=== PATIENT | male | born 1965 | race Caucasian/White ===

== ENCOUNTER 2021-04-06 12:47 | Emergency (ER) | payer OTHER, SELFPAY ==
[2021-04-06 15:37] VITALS: BP 148/98; PULSE 107; RESP 18; TEMP 36.6; O2SAT 98; BMI 32.5
[2021-04-06 16:07] LABS: COVID-19 Test Negative (Negative)
--- NOTE | 2021-04-06 18:56 | ED.URI ---
HPI - URI/Sore Throat General Chief Complaint: Upper Respiratory Symptoms Stated Complaint: flu symptons chest tightness Time Seen by Provider: 04/06/21 18:44 Source: patient Mode of arrival: ambulatory Limitations: no limitations History of Present Illness HPI Narrative: 56-year-old male who presents emergency department for evaluation of cough, chest tightness, headache, fever, body aches and shortness of breath. The patient states that on 04/02/2021 (5 days prior to evaluation) he was at a constitution party and was exposed to someone who tested positive for COVID-19. He also states that he went outside in a T-shirt and got wet, when he came back inside he felt very cold and chilled. He states that since then he has had a cough which is productive of thick yellow mucus with no blood in the mucus, he has had shortness of breath which she describes as mild, he denied dyspnea on exertion. He has tightness in his chest which is worse with breathing worse with coughing. States that he has had body aches. He denies diarrhea or loss of sense of taste or smell. He has not had a documented fever at home. The patient does have a history of sleep apnea and uses a CPAP machine. Related Data Previous Rx's Medication Instructions Recorded benzonatate 100 mg capsule 200 mg PO TID PRN #20 cap 04/06/21 doxycycline hyclate 100 mg tablet 100 mg PO Q12H 7 Days #14 tab 04/06/21 Allergies Allergy/AdvReac Type Severity Reaction Status Date / Time No Known Allergies Allergy Verified 04/06/21 15:37 Review of Systems Review of Systems: Yes all other systems are reviewed and are negative [facility] Past Medical History [facility] Narrative: Past medical history: Diabetes mellitus, hypertension, sleep apnea, osteoporosis. Past surgical history: Cholecystectomy, spinal cyst removed, left total knee replacement. Social history: He denies tobacco use. He occasionally drinks alcohol. He denies drug use. Medical History Diabetes HTN (hypertension) Social History Social History Advance Directives: No Advance Directives Information Provided: No Physical Exam Vital Signs: Vital Signs: Last Vital Signs Temp 97.8 F 04/06/21 15:37 Pulse 107 H 04/06/21 15:37 Resp 18 04/06/21 15:37 BP 148/98 H 04/06/21 15:37 Pulse Ox 98 04/06/21 15:37 BMI result Body Mass Index 32.5 Const: General: cooperative and healthy appearing Orientation/consciousness: oriented to person and oriented to place Limitations: no limitations HENMT: Head: Yes normal to inspection, Yes normocephalic and Yes atraumatic Ears: external ears normal General nose exam: Normal external nose present Face and sinus: Yes normal facial exam Mouth: Normal oral and palatal mucosa present Throat: Yes posterior oropharynx normal Eyes: Periorbital: periorbital findings normal Eyelids: Yes eyelids normal Conjunctivae: conjunctivae normal Sclerae: sclerae normal Corneas: corneas normal Pupils: Equal, round and reactive pupils present Direct Ophthalmoscopy: normal light reflex Neck: Neck: Yes full ROM, Yes no lymphadenopathy, Yes no meningeal signs, Yes trachea midline and Yes supple Chest: Chest palpation & inspection: normal inspection of the chest and normal palpation of entire chest wall Resp: Effort & Inspection: normal respiratory effort and able to speak in complete sentences Auscultation: clear to auscultation bilaterally Cardio: Rate: regular rate Rhythm: regular rhythm Heart sounds: S1 normal heart sound present, S2 normal heart sound present and no murmurs GI: Inspection: Yes normal to inspection Palpation (GI): Soft to palpation, nontender, no guarding, not rigid and No hepatosplenomegaly present : General: Yes no CVA tenderness Back/Spine/Pelvis: Back: no CVA tenderness Cervical Spine: normal cervical lordosis Thoracic/Lumbar Spine: thoracic and lumbar spine normal to inspection Skin: Lesions: no lesions Rashes: no rashes Wounds: no wounds Neuro: General: oriented to person, oriented to place and no meningeal signs Cranial nerves: Yes Equal, round and reactive pupils present Cognition (Neuro): normal cognition Motor exam (neuro): 5/5 motor strength present throughout Extrem: General: Yes normal to inspection and Yes full ROM Psych: Appearance: well kempt Mental Status: mental status grossly normal Speech and movement: Normal speech and movement present Affect: normal affect Attitude: cooperative Thought process: Normal thought process present Thought content: Normal thought content present Course Course Course Narrative: 56-year-old male who presents emergency department for evaluation of 5 days of upper respiratory infection like symptoms. He has been vaccinated with the Pfizer COVID-19 vaccine x2. He did have a COVID-19 exposure 5 days prior while he was at a [employer] constitution party. The patient's vital signs revealed a tachycardia with a pulse of 107 elevated blood pressure of 148/98. Respiratory rate was normal at 18 in the patient's O2 saturation was 90% on room air. Lung exam was clear. Patient's COVID-19 test was negative. I did discuss false negative test with the patient. He has been ill for 5 days and I suspect that this test should be positive at this time but I did tell him that sometimes people do not turn positive for is 14 days. Given his sleep apnea and CPAP use, I will treat the patient for possible bacterial bronchitis with doxycycline 100 mg twice a day for 7 days and Tessalon Perles 200 mg 3 times a day as needed for cough. Was discharged home with printed and verbal instructions. MDM - URI/Sore Throat Lab Data Labs: Lab Results 04/06/21 Range/Units 15:42 COVID-19 ([facility]) Negative (Negative) COVID-19 Clin Com See Note Discharge Plan Discharge Clinical Impression: Bronchitis Patient Disposition: Home, Self-Care Instructions: Acute Bronchitis (ED) Additional Instructions: Your COVID-19 test today was negative. Most people when they have symptoms for 4-5 days will test positive if they have a COVID 19 infection Therefore it is reassuring that your COVID test was negative today however some people do not test positive until day 14 of their illness. Your O2 saturation was 98% on room air which is good. We only admit people to the hospital if there O2 saturation drops below 90%. I am treating you for a bacterial bronchitis with doxycycline 100 mg twice a day for 7 days. I am treating your cough with Tessalon Perles 200 mg, take 1 pill 3 times a day as needed for cough. Take ibuprofen 200 mg pills, 3 pills every 6 hours as needed for pain or fever Take Tylenol (acetaminophen) 500 mg pills, 2 pills every 4 to 6 hours as needed for pain or fever. If you develops signs of pneumonia which include increased cough, chest pain with breathing or coughing, shortness of breath at rest and shortness of breath with exertion (usually less than 10 ft) then please return to the emergency department so that can re-evaluate you in retested for COVID 19. Follow-up with your doctor in 2 days. Please return to the emergency department if your symptoms get worse or if you develop any symptoms that are concerning to you. Prescriptions: New doxycycline hyclate 100 mg tablet 100 mg PO Q12H 7 Days Qty: 14 RF: 0 benzonatate 100 mg capsule 200 mg PO TID PRN (Reason: cough) Qty: 20 RF: 0
== END 2021-04-06 19:15 | disposition home or self-care (01) ==
PROVIDERS: Emergency Provider Emergency Medicine Emergency Medical Services; PCP Internal Medicine
DX: J40 Bronchitis, not specified as acute or chronic (principal); Z20.822 Contact with and (suspected) exposure to COVID-19; J02.9 Acute pharyngitis, unspecified; E11.9 Type 2 diabetes mellitus without complications; I10 Essential (primary) hypertension
CPT/HCPCS: 36415; 87635; 99283

== ENCOUNTER 2021-04-09 10:11 | Emergency (ER) | payer OTHER, SELFPAY ==
--- NOTE | ~2021-04-09 | XR_ITS ---
EXAMINATION: XR CHEST CLINICAL INFORMATION: Covid positive. Cough. COMPARISON: None TECHNIQUE: Frontal view of the chest was obtained. FINDINGS: No significant abnormality is noted involving the heart, lungs, mediastinum, bony thorax or soft tissues. XR/XR chest 1V IMPRESSION: Unremarkable examination.
[2021-04-09 11:05] VITALS: BP 120/87; PULSE 112; RESP 18; TEMP 37.1; O2SAT 98; BMI 32.5
[2021-04-09 11:35] LABS: COVID-19 Test Positive (Negative); IDNOW Serial# 9DD0AD1C
--- NOTE | 2021-04-09 12:52 | ECG_ITS ---
Test Reason : chest tightness Blood Pressure : / mmHG Vent. Rate : 106 BPM Atrial Rate : 106 BPM P-R Int : 124 ms QRS Dur : 086 ms QT Int : 336 ms P-R-T Axes : 054 021 018 degrees QTc Int : 446 ms Sinus tachycardia Otherwise normal ECG No previous ECGs available Referred By: Jenn Salinas Electronically Signed By:Luis Zhang
--- NOTE | 2021-04-09 13:10 | ED.URI ---
HPI - URI/Sore Throat General Chief Complaint: Upper Respiratory Symptoms Stated Complaint: cough tested - covid Time Seen by Provider: 04/09/21 12:14 Source: patient Mode of arrival: ambulatory Limitations: no limitations History of Present Illness HPI Narrative: 56-year-old male came in for evaluation of upper respiratory symptoms and coughing. Symptoms started 2 days ago as yellow sputum productive coughing, chest tightness, otherwise no shortness of breath, no fever, no chills, no body ache, no sick contacts, no recent travel, patient received 2 COVID vaccination. Related Data Previous Rx's Medication Instructions Recorded benzonatate 100 mg capsule 200 mg PO TID PRN #20 cap 04/06/21 doxycycline hyclate 100 mg tablet 100 mg PO Q12H 7 Days #14 tab 04/06/21 codeine 10 mg-guaifenesin 100 mg/5 5 ml PO Q6H PRN #118 ml 04/09/21 mL oral liquid Allergies Allergy/AdvReac Type Severity Reaction Status Date / Time No Known Allergies Allergy Verified 04/09/21 11:05 Review of Systems Review of Systems: All other systems are reviewed and are negative Constitutional: Reports as per HPI and Reports no additional constitutional complaints Eyes: Reports as per HPI and Reports no additional eye complaints Reports system reviewed and no additional complaints, except as documented Cardiovascular: Reports as per HPI and Reports no additional cardiovascular complaints Respiratory: Reports as per HPI and Reports no additional respiratory complaints Gastrointestinal: Reports as per HPI and Reports no additional gastrointestinal complaints Genitourinary: Reports no additional female genitourinary complaints Musculoskeletal: Reports no additional musculoskeletal complaints Skin/Breast: Reports system reviewed and no additional complaints, except as docu Psychiatric: Reports no additional psychiatric complaints Endocrine: Reports no additional endocrine complaints Hematologic/Lymphatic: Reports no additional hematologic/lymphatic complaints Allergic/Immunologic: Reports no additional allergic/immunologic complaints Reports system reviewed and no additional complaints, except as documented and Reports Abnormal speech present [facility] Past Medical History Medical History Diabetes HTN (hypertension) Social History Social History Advance Directives: Yes Advance Directives Information Provided: Yes Advance Directives on File: No Physical Exam Vital Signs: Vital Signs: Last Vital Signs Temp 98.8 F 04/09/21 11:05 Pulse 112 H 04/09/21 11:05 Resp 18 04/09/21 11:05 BP 120/87 04/09/21 11:05 Pulse Ox 98 04/09/21 11:05 BMI result Body Mass Index 32.5 Vital signs have been reviewed as appeared to be correct. Blood pressure normal. Heart rate elevated. Respiration rate normal. Temperature normal. Oxygen saturation normal. Appearance: Alert. Oriented X3. No acute distress. Head: Normal external exam. Normocephalic. Atraumatic. No Ascencio signs noted. No raccoon eyes noted Eyes: PERRLA. EOMI. Conjunctiva and sclera normal. Eyelids normal. ENT: TM's Normal. Pharynx normal. Uvula midline. Moist mucous membranes. No trismus noted. No drooling noted. No muffled voice noted. Neck: Normal inspection. Neck supple. FROM. No adenopathy. Thyroid Normal. No meningeal signs. No neck mass noted. CVS: Normal heart rate and rhythm. Heart sound normal. No murmurs noted. Pulses normal throughout. Respiratory: No respiratory distress. Painless inspiration. Breath sounds normal. No wheezes/rales/rhonchi noted. Chest nontender. No accessory muscle usage noted or decreased air movement noted. Abdomen: Soft and nontender. Bowel sounds normal in all 4 quadrants. No distention noted. No organomegaly noted. No visible injury noted. Back: No CVA tenderness. Full range of motion noted. Skin: Skin warm and dry. Normal skin color. Normal skin turgor. No rashes/lesions/lacerations noted. Extremities: No lower extremity edema. Extremities exhibit normal range of motion. Extremities nontender. Neuro: Oriented X 3. Cranial nerve exam: II-XII are grossly intact No motor deficit. No sensory deficit. Reflexes normal. Course Reevaluation(s) Reevaluation #1: Assessment and plan. 56-year-old male COVID positive, no respiratory distress, no hypoxia, unremarkable chest x-ray, unremarkable EKG. Slight tachycardia from coughing. MDM - URI/Sore Throat Lab Data Attestation: I reviewed the patient's lab results. Labs: Lab Results 04/09/21 Range/Units 11:09 COVID-19 ([facility]) Positive A (Negative) COVID-19 Clin Com See Note Imaging Data Chest x-ray: Attestation: I personally reviewed and interpreted this imaging study as follows: Radiologist's impression: No acute pathology. Discharge Plan Discharge Clinical Impression: COVID-19 virus infection Patient Disposition: Home, Self-Care Instructions: COVID-19 (Coronavirus Disease 2019) (ED) Additional Instructions: Frequent handwashing, where face mask at all the time, keep social distancing at least 6 ft, self quarantine for 2 weeks. Prescriptions: New codeine-guaifenesin 10-100 mg/5 mL liquid 5 ml PO Q6H PRN (Reason: cough) Qty: 118 RF: 0 No Action doxycycline hyclate 100 mg tablet 100 mg PO Q12H 7 Days Qty: 14 RF: 0 benzonatate 100 mg capsule 200 mg PO TID PRN (Reason: cough) Qty: 20 RF: 0 Referrals: Mckay York MD [Primary Care Provider] - 2 days Interventions: ED Discharge Assessment Last Done: 04/09/21 13:37 Discharge Date/Time: 04/09/21 13:37
== END 2021-04-09 13:37 | disposition home or self-care (01) ==
PROVIDERS: Emergency Provider Emergency Medicine; PCP Internal Medicine
DX: U07.1 COVID-19 (principal); R05.9 Cough, unspecified; Z79.899 Other long term (current) drug therapy
CPT/HCPCS: 36415; 71045; 87635; 93005; 99283

== ENCOUNTER 2021-11-15 23:32 | Emergency (ER) | payer OTHER, SELFPAY ==
--- NOTE | 2021-11-15 | ECG_ITS ---
Test Reason : CHEST PAIN Blood Pressure : / mmHG Vent. Rate : 094 BPM Atrial Rate : 094 BPM P-R Int : 134 ms QRS Dur : 088 ms QT Int : 360 ms P-R-T Axes : 036 003 033 degrees QTc Int : 450 ms Normal sinus rhythm Normal ECG When compared with ECG of 09-APR-2021 12:54, No significant change was found Referred By: Generic ED Physician Electronically Signed By:AZRA BROWN
--- NOTE | ~2021-11-15 | CT_ITS ---
EXAMINATION: CT ABDOMEN AND PELVIS WITHOUT CONTRAST CLINICAL INFORMATION: Right lower quadrant pain COMPARISON: None TECHNIQUE: Multidetector volumetric imaging was performed from the superior aspect of the liver through the pubic symphysis. Sagittal and coronal reformatted images were obtained on the technologist's workstation. This CT examination was performed using dose optimization techniques as appropriate, variously including the following: *Automated exposure control *Adjustment of mA and/or kV according to patient size (this includes techniques or standardized protocols for targeted exams where dose is matched to indication/reason for exam; i.e. extremities or head) *Use of iterative reconstruction technique DLP: 680 mGy-cm FINDINGS: LUNG BASES: The visualized lung bases are unremarkable. LIVER, GALLBLADDER, AND BILIARY TREE: The liver is normal in size, shape, and attenuation. No focal hepatic lesion or biliary ductal dilatation is present. Cholecystectomy. PANCREAS: Unremarkable. SPLEEN: Unremarkable. ADRENAL GLANDS: Unremarkable. KIDNEYS AND URETERS: The kidneys are normal in size, shape, and attenuation. No hydronephrosis or hydroureter. 0.2 cm right midpole renal calculus is 12 cm from the posterior axillary line. There are 2 additional adjacent 0.2 cm right upper pole calculi. Exophytic left lower pole 1.1 cm simple cyst. No follow-up imaging recommended. BLADDER: Unremarkable. GASTROINTESTINAL TRACT: Distended stomach without wall thickening. Normal caliber small bowel. No obstruction. Normal appendix. No colonic wall thickening or inflammatory change. No free air or free fluid. ABDOMINAL WALL: Fat-containing right inguinal hernia. LYMPH NODES: Normal. VASCULAR: Normal caliber aorta with moderate atherosclerotic calcification. IVC filter present. PELVIC VISCERA: The prostate and seminal vesicles are unremarkable. OSSEOUS STRUCTURES: No acute or suspicious osseous abnormality. Mild height loss at the T11 vertebral body is likely chronic. Osseous fusion of the right sacroiliac joint. CT/CT abdomen pelvis wo con IMPRESSION: No acute finding in the abdomen or pelvis. Normal appendix. Nonobstructing right renal calculi. No hydronephrosis. Fleischner guidelines were followed.
--- NOTE | ~2021-11-15 | XR_ITS ---
EXAMINATION: XR CHEST CLINICAL INFORMATION: Chest pain COMPARISON: 04/09/2021 TECHNIQUE: Frontal view of the chest was obtained. FINDINGS: The lungs are well expanded. There is no focal consolidation, edema, or effusion. No pneumothorax. The cardiomediastinal silhouette is within normal limits. No acute osseous abnormality. XR/XR chest 1V IMPRESSION: No acute pulmonary finding.
[2021-11-15 23:36] VITALS: BP 151/96; PULSE 96; RESP 16; TEMP 36.6; O2SAT 99; BMI 33.2
[2021-11-15 23:50] LABS: MANUAL DIFF FLAG NO
[2021-11-15 23:51] LABS: Basophils Percent Auto 0.5 % (0-2); Eosinophils Absolute Auto 0.2 X10*3/uL (0.0-0.4); Eosinophils Percent Auto 3.9 % (0-4); Hemoglobin 13.4 g/dl (14.0-18.0); Imm Gran Abs Auto 0.01 X10*3/uL (0.00-0.03); Imm Gran Pct Auto 0.2 % (0.0-0.4); Lymphocytes Absolute Auto 2.8 X10*3/uL (1.2-4.9); Lymphocytes Percent Auto 44.6 % (20-40); Mean Corpuscular HGB Conc 33.5 g/dl (31.0-36.0); Mean Corpuscular Volume 80.6 fL (80.0-98.0); Mean Platelet Volume 9.9 fL (9.4-12.4); Monocytes Absolute Auto 0.4 X10*3/uL (0.1-1.2); Monocytes Percent Auto 6.9 % (2-11); Neutrophils Absolute Auto 2.7 x10*3/uL (2.0-8.3); Neutrophils Percent Auto 43.9 % (45-73); Platelet Count 182 X10*3/uL (160-400); Red Blood Count 4.96 X10*6/uL (4.60-5.80); Red Cell Distribution Width 12.5 % (11.0-16.0); White Blood Count 6.2 X10*3/uL (4.8-10.8)
[2021-11-16 00:11] LABS: Alanine Aminotransferase 13 U/L (0-40); Albumin Level 4.1 g/dL (3.5-5.0); Alkaline Phosphatase 63 U/L (39-117); Anion Gap 15 (12-20); Aspartate Amino Transferase 13 U/L (5-37); Bilirubin Direct 0.3 mg/dL (0.0-0.5); Bilirubin Total 0.6 mg/dL (0.0-1.0); Blood Urea Nitrogen 9 mg/dL (9-16); Carbon Dioxide 24 mmol/L (22-29); Chloride 105 mmol/L (96-108); Creatinine Clr Calc Pharmacy 90.2; Estimated Glomerular Filt Rate > 60; Glucose Random 206 mg/dL (60-115); Lipase 30 U/L (8-78); Potassium 3.6 mmol/L (3.3-5.1); Sodium 140 mmol/L (135-145); Total Protein 7.6 g/dL (6.5-8.0)
[2021-11-16 00:15] LABS: Troponin-I High Sensitivity 3.6 ng/L (<3.5-35.0)
--- NOTE | 2021-11-16 00:40 | ED.CHESTPAIN ---
HPI - Chest Pain General Chief Complaint: Chest Pain Stated Complaint: chest pain Time Seen by Provider: 11/16/21 00:40 Source: patient Mode of arrival: ambulatory Limitations: no limitations History of Present Illness HPI narrative: 56 yo male with hx of DM, HTN, HLD here with vague brief sharp chest pain all day in left upper chest - symptoms at rest not made worse with anything. states this has happened before has had normal stress tests in the past. He also c/o RLQ pain x 2 weeks with some constipation. He also notes he had a home COVID test that was positive 3 days ago. MD complaint: chest pain (abdominal pain) Onset (ago): day(s) (chest pain since 8/9 AM, and RLQ pain 2 weeks) Timing of current episode: episodic Onset: during rest Pain location: left chest Pain radiation: none Severity: mild Quality: sharp Relieving factors: nothing Exacerbating factors: nothing Context: recent illness (prior episodes of chest pain but notes + COVID test at home 3 days ago) Associated symptoms: nausea Treatment prior to arrival: none Related Data Previous Rx's Medication Instructions Recorded benzonatate 100 mg capsule 200 mg PO TID PRN cough #20 caps 04/06/21 doxycycline hyclate 100 mg tablet 100 mg PO Q12H 7 days #14 tabs 04/06/21 codeine 10 mg-guaifenesin 100 mg/5 5 ml PO Q6H PRN cough #118 mL 04/09/21 mL oral liquid Allergies Allergy/AdvReac Type Severity Reaction Status Date / Time No Known Allergies Allergy Verified 04/09/21 11:05 Review of Systems Review of Systems: Constitutional : No Weight loss, No Fever, No Chills ENT/Mouth : No sore throat, No Rhinorrhea Eyes: No Swelling, No Redness Cardiovascular : pos Chest Pain, No SOB, No Edema Respiratory : No Cough, No Sputum, No Wheezing Gastrointestinal : Positive Nausea, no Vomiting, no Diarrhea, positive abdominal Pain, No Hematochezia, No Melena Genitourinary : No Dysuria, No Urinary Frequency, No Hematuria, No Urgency Musculoskeletal : No joint pain, No Myalgias, No Joint Swelling Skin : No Skin Lesions, No rash Neuro : No Weakness, No Numbness, No Dizziness, No Headache Psych : No Anxiety/Panic, No Depression Heme/Lymph: No Bruising, No Lymphadenopathy Endocrine : No Polyuria, No Polydipsia All other systems reviewed and are negative. [facility] Past Medical History Attestation statement: The following information was validated with the patient. Medical History (Updated 11/16/21 @ 02:04 by Meka Leyva DO) Diabetes HTN (hypertension) Surgical History (Updated 11/16/21 @ 01:07 by Meka Leyva DO) S/P hernia repair Social History Social History Advance Directives: No Advance Directives Information Provided: Yes Physical Exam Vital Signs: Vital Signs: Last Vital Signs Temp 98.3 F 11/16/21 00:46 Pulse 90 11/16/21 00:46 Resp 17 11/16/21 00:46 BP 164/93 H 11/16/21 00:46 Pulse Ox 99 11/16/21 00:46 O2 Del Method 11/16/21 00:46 BMI result Body Mass Index 33.2 Appearance: Alert. Oriented X3. No acute distress. Eyes: Pupils equal, round and reactive to light. ENT: Pharynx normal. Neck: Normal inspection. Neck supple. CVS: Normal heart rate and rhythm. Pulses normal. Respiratory: No respiratory distress. Breath sounds normal. Abdomen: Soft and mild RLQ ttp no rebound or guarding Skin: Skin warm and dry. Normal skin color. Normal skin turgor. Extremities: No lower extremity edema. No calf ttp Neuro: Oriented X 3. No motor deficit. No sensory deficit. Course Course Course Narrative: trop CXR, ddimer negative stable for DC no acute findings on CT scan symptoms 1+ week does not quality for treatments MDM - Chest Pain MDM Narrative Medical decision making narrative: 56 yo male with hx of DM, HTN, HLD here wtih atypical chest pain with nonischemic EKG and trop flat at 12 hour jimmy doubt ACS, he also has no hypoxia/tachycardia or signs of DVT to suggest PE - it is not pleuritic. He has had chest pain in the past. Patient also c/o RLQ pain x 2 weeks will obtain labs, UA, CT scan to r/o stone/appy dispo per results and findings. COVID test ordered Lab Data Result diagrams: 11/15/21 23:43 11/15/21 23:43 Labs: Lab Results 08/12/2911/15/21 11/15/21 Range/Units 23:43 23:43 23:43 WBC 6.2 (4.8-10.8) X10*3/uL RBC 4.96 (4.60-5.80) X10*6/uL Hgb 13.4 L (14.0-18.0) g/dl Hct 40.0 L (42.0-52.0) % MCV 80.6 (80.0-98.0) fL MCH 27.0 (27.0-33.0) pg MCHC 33.5 (31.0-36.0) g/dl RDW 12.5 (11.0-16.0) % Plt Count 182 (160-400) X10*3/uL MPV 9.9 (9.4-12.4) fL Immature Gran % (Auto) 0.2 (0.0-0.4) % Neut % (Auto) 43.9 L (45-73) % Lymph % (Auto) 44.6 H (20-40) % [place] % (Auto) 6.9 (2-11) % Eos % (Auto) 3.9 (0-4) % Baso % (Auto) 0.5 (0-2) % Lymph # (Auto) 2.8 (1.2-4.9) X10*3/uL [place] # (Auto) 0.4 (0.1-1.2) X10*3/uL Eos # (Auto) 0.2 (0.0-0.4) X10*3/uL Baso # (Auto) 0.0 (0.0-0.2) X10*3/uL Abs Immat Gran (auto) 0.01 (0.00-0.03) X10*3/uL Absolute Neuts (auto) 2.7 (2.0-8.3) x10*3/uL Absolute Nucleated RBC 0.000 (0.0-0.012) X10*3/uL Nucleated RBC % (auto) 0.0 (0.0-0.2) /100WBC D-Dimer High Sensitivty NG/ML Sodium 140 (135-145) mmol/L Potassium 3.6 (3.3-5.1) mmol/L Chloride 105 (96-108) mmol/L Carbon Dioxide 24 (22-29) mmol/L Anion Gap 15 (12-20) BUN 9 (9-16) mg/dL Creatinine 1.05 (0.5-1.4) mg/dL Estim Creat Clear Calc 90.2 Estimated GFR > 60 Random Glucose 206 H (60-115) mg/dL Calcium 9.0 (8.4-10.2) mg/dL Total Bilirubin 0.6 (0.0-1.0) mg/dL Direct Bilirubin 0.3 (0.0-0.5) mg/dL AST 13 (5-37) U/L ALT 13 (0-40) U/L Alkaline Phosphatase 63 (39-117) U/L Troponin I High Sens 3.6 (<3.5-35.0) ng/L Total Protein 7.6 (6.5-8.0) g/dL Albumin 4.1 (3.5-5.0) g/dL Lipase 30 (8-78) U/L COVID-19 (MAGY) (Negative) COVID-19 Clin Com 11/16/21 11/16/21 Range/Units 00:58 01:34 WBC (4.8-10.8) X10*3/uL RBC (4.60-5.80) X10*6/uL Hgb (14.0-18.0) g/dl Hct (42.0-52.0) % MCV (80.0-98.0) fL MCH (27.0-33.0) pg MCHC (31.0-36.0) g/dl RDW (11.0-16.0) % Plt Count (160-400) X10*3/uL MPV (9.4-12.4) fL Immature Gran % (Auto) (0.0-0.4) % Neut % (Auto) (45-73) % Lymph % (Auto) (20-40) % [place] % (Auto) (2-11) % Eos % (Auto) (0-4) % Baso % (Auto) (0-2) % Lymph # (Auto) (1.2-4.9) X10*3/uL [place] # (Auto) (0.1-1.2) X10*3/uL Eos # (Auto) (0.0-0.4) X10*3/uL Baso # (Auto) (0.0-0.2) X10*3/uL Abs Immat Gran (auto) (0.00-0.03) X10*3/uL Absolute Neuts (auto) (2.0-8.3) x10*3/uL Absolute Nucleated RBC (0.0-0.012) X10*3/uL Nucleated RBC % (auto) (0.0-0.2) /100WBC D-Dimer High Sensitivty 173 NG/ML Sodium (135-145) mmol/L Potassium (3.3-5.1) mmol/L Chloride (96-108) mmol/L Carbon Dioxide (22-29) mmol/L Anion Gap (12-20) BUN (9-16) mg/dL Creatinine (0.5-1.4) mg/dL Estim Creat Clear Calc Estimated GFR Random Glucose (60-115) mg/dL Calcium (8.4-10.2) mg/dL Total Bilirubin (0.0-1.0) mg/dL Direct Bilirubin (0.0-0.5) mg/dL AST (5-37) U/L ALT (0-40) U/L Alkaline Phosphatase (39-117) U/L Troponin I High Sens (<3.5-35.0) ng/L Total Protein (6.5-8.0) g/dL Albumin (3.5-5.0) g/dL Lipase (8-78) U/L COVID-19 (MAGY) Positive A (Negative) COVID-19 Clin Com See Note ECG Data ECG #1: Attestation: I personally reviewed and interpreted this ECG as follows: ECG interpretation date: 11/16/21 ECG interpretation time: 00:41 Interpretation: Rate: 94 Rhythm: NSR [place]: normal Normal P waves. Normal YENNI. Normal QRS complex. ST T wave : normal no FIDELINA qTC: normal prior studies: no acute ischemia The study has been interpreted contemporaneously by me. Discharge Plan Discharge Clinical Impression: COVID-19 virus infection, Atypical chest pain Abdominal pain Qualifiers: Abdominal location: right lower quadrant Qualified Code(s): R10.31 - Right lower quadrant pain Patient Disposition: Home, Self-Care Instructions: Abdominal Pain (ED), Chest Pain (ED), COVID-19 (Coronavirus Disease 2019) (ED) Additional Instructions: return to ED for any worsening symptoms or concerns CT scan normal negative heart test negative blood clot test + for COVID no covid pneumonia if you become so short of breath you cannot walk to your own bathroom please seek medical care Prescriptions: No Action codeine-guaifenesin 10-100 mg/5 mL liquid 5 ml PO Q6H PRN (Reason: cough) Qty: 118 0RF doxycycline hyclate 100 mg tablet 100 mg PO Q12H 7 Days Qty: 14 0RF benzonatate 100 mg capsule 200 mg PO TID PRN (Reason: cough) Qty: 20 0RF
[2021-11-16 00:46] VITALS: BP 164/93; PULSE 90; RESP 17; TEMP 36.8; O2SAT 99
[2021-11-16] MEDS: Acetaminophen 325 MG TABLET 650 MG PO (00:54)
[2021-11-16] MEDS: Cyclobenzaprine HCl 10 MG TABLET PO (00:54)
--- NOTE | 2021-11-16 00:57 | PC.NURSE ---
pt a&ox3, vss, reporting 7/10 RLQ abd pain, medicated per provider order. pt to CT.
[2021-11-16 01:16] LABS: COVID-19 Test Positive (Negative)
[2021-11-16 01:59] LABS: D Dimer High Sensitivity 173 NG/ML
== END 2021-11-16 02:55 | disposition home or self-care (01) ==
PROVIDERS: Emergency Provider Emergency Medicine; PCP Internal Medicine
DX: U07.1 COVID-19 (principal); R07.89 Other chest pain; R10.31 Right lower quadrant pain; E11.9 Type 2 diabetes mellitus without complications; I10 Essential (primary) hypertension; E78.5 Hyperlipidemia, unspecified
CPT/HCPCS: 36415; 71045; 74176; 80053; 82248; 83690; 84484; 85025; 85379; 87635; 93005; 99284

== ENCOUNTER 2022-11-18 02:45 | Emergency (ER) | payer OTHER, SELFPAY ==
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
[2022-11-18 02:56] VITALS: BP 147/93; PULSE 103; RESP 22; TEMP 37; O2SAT 95
[2022-11-18 03:07] VITALS: BP 143/93; BP 153/86; PULSE 103; PULSE 116; RESP 22; TEMP 37; O2SAT 94; O2SAT 95; BMI 32.9
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
[2022-11-18 03:33] LABS: Hematocrit 44.9 % (42.0-52.0); Hemoglobin 14.5 g/dl (14.0-18.0); Mean Corpuscular HGB Conc 32.3 g/dl (31.0-36.0); Mean Corpuscular Hemoglobin 26.5 pg (27.0-33.0); Mean Corpuscular Volume 81.9 fL (80.0-98.0); Mean Platelet Volume 9.7 fL (9.4-12.4); Platelet Count 206 X10*3/uL (160-400); Red Blood Count 5.48 X10*6/uL (4.60-5.80); Red Cell Distribution Width 12.8 % (11.0-16.0); White Blood Count 6.3 X10*3/uL (4.8-10.8)
[2022-11-18 03:44] LABS: Anion Gap 18 (12-20); Blood Urea Nitrogen 8 mg/dL (9-16); Calcium 9.2 mg/dL (8.4-10.2); Carbon Dioxide 21 mmol/L (22-29); Chloride 107 mmol/L (96-108); Creatinine Clr Calc Pharmacy 83.1; Estimated Glomerular Filt Rate > 60; Glucose Random 209 mg/dL (60-115); Potassium 3.2 mmol/L (3.3-5.1); Sodium 143 mmol/L (135-145)
[2022-11-18 04:09] VITALS: BP 146/91; PULSE 109; RESP 20; TEMP 37.1; O2SAT 93
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
[2022-11-18 06:16] VITALS: BP 125/75; PULSE 102; RESP 18; TEMP 37; O2SAT 96
[2022-11-18 07:35] VITALS: BP 152/83; PULSE 104; RESP 16; TEMP 36.9; O2SAT 97
--- NOTE | 2022-11-18 07:36 | PC.NURSE ---
pt a&ox3, vss aside from being slightly tachycardic, pt verbalizing 6/10 pain in his neck. pt also stating that he wants to go home and that he feels fine. call betancur placed within reach. will continue to monitor.
--- NOTE | 2022-11-18 07:41 | PC.NURSE ---
pt's sister called asking about when the pt is going to be discharged - notified sister that there was no discharge paperwork in yet. took sister's phone number [phone] and will notify when discharge is ready.
[2022-11-18 07:59] VITALS: BP 133/85; PULSE 102; RESP 17; TEMP 36.9; O2SAT 95
--- NOTE | 2022-11-18 08:14 | PC.NURSE ---
significant other bringing clothes
--- NOTE | 2022-11-18 08:14 | PC.NURSE ---
called sister so pt could be discharged.
[2022-11-18 08:17] LABS: Glucose, Whole Blood 176 mg/dL (60-115)
--- NOTE | 2022-11-18 09:40 | PC.NURSE ---
R ARM WOUND CLEANSED, DRESSED
== END 2022-11-18 09:40 | disposition home or self-care (01) ==
PROVIDERS: Emergency Medicine; Emergency Provider Emergency Medicine Emergency Medical Services; PCP Internal Medicine
DX: S16.1XXA Strain of muscle, fascia and tendon at neck level, initial encounter (principal); V48.0XXA Car driver injured in noncollision transport accident in nontraffic accident, initial encounter; Y93.9 Activity, unspecified; Y92.89 Other specified places as the place of occurrence of the external cause; Y99.9 Unspecified external cause status; M54.2 Cervicalgia; I10 Essential (primary) hypertension; E11.9 Type 2 diabetes mellitus without complications
CPT/HCPCS: 36415; 70450; 72125; 80048; 82947; 85027; 99284

== ENCOUNTER 2023-03-27 18:12 | Emergency (ER) | payer OTHER, SELFPAY ==
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
--- NOTE | ~2023-03-27 | XR_ITS ---
EXAMINATION: XR LUMBOSACRAL SPINE CLINICAL INFORMATION: Pain. COMPARISON: CT abdomen and pelvis dated 11/16/2021; thoracic spine radiographs dated 03/27/2023. TECHNIQUE: AP and lateral views of the lumbar spine and lateral view of the lumbosacral junction. FINDINGS: There is bony demineralization. A moderate T11 upper endplate wedge compression fracture is redemonstrated, similar in extent to 11/16/2021. Vertebral body heights are otherwise normal. Alignment is normal. The lower thoracic and lumbar disc spaces are well-maintained. No acute fracture or spondylolisthesis is seen. The posterior elements are intact. There is facet arthropathy at L5-S1. The inferior vena cava filter device right upper quadrant surgical clip are noted. XR/XR lumbar spine 2-3V IMPRESSION: 1. There is a continued stable moderate T11 upper endplate anterior wedge compression fracture. 2. No acute fracture or spondylolisthesis is seen. 3. The lower thoracic and lumbar disc spaces are well-maintained. 4. There is facet arthropathy at L5-S1.
--- NOTE | ~2023-03-27 | XR_ITS ---
EXAMINATION: XR THORACIC SPINE CLINICAL INFORMATION: Thoracic pain COMPARISON: None available. TECHNIQUE: Frontal and lateral views of the thoracic spine were obtained. FINDINGS: There is mild loss of height at T11. Vertebral body height is otherwise maintained. Paraspinal soft tissues are unremarkable. The aorta is uncoiled. XR/XR thoracic spine 3V IMPRESSION: Mild loss of height at T11, age indeterminate.
[2023-03-27 18:33] VITALS: BP 176/118; PULSE 97; RESP 18; TEMP 36.8; O2SAT 98; BMI 32.6
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
[2023-03-27 22:02] VITALS: BP 173/104; PULSE 97; RESP 18; TEMP 36.8; O2SAT 98
== END 2023-03-27 22:45 | disposition home or self-care (01) ==
PROVIDERS: Emergency Provider Internal Medicine; PCP Internal Medicine
DX: S39.012A Strain of muscle, fascia and tendon of lower back, initial encounter (principal); S16.1XXA Strain of muscle, fascia and tendon at neck level, initial encounter; V43.52XA Car driver injured in collision with other type car in traffic accident, initial encounter; Y93.89 Activity, other specified; Y92.414 Local residential or business street as the place of occurrence of the external cause; Y99.9 Unspecified external cause status
CPT/HCPCS: 72072; 72100; 72125; 99282; 99284